=== PATIENT | male | born 1960 | race Caucasian/White ===

== ENCOUNTER 2020-05-27 09:44 | Emergency (ER) | payer BC, OTHER ==
[~2020-05-27] VITALS: Ht 177.8 cm; Wt 96.2 kg
[2020-05-27 09:55] VITALS: BP 137/103
--- NOTE | 2020-05-27 10:06 | NUR ---
AT BEDSIDE FOR EVAL
--- NOTE | 2020-05-27 10:31 | NUR ---
Patient a/ox4, breathing even and unlabored, ambulatory with steady gait. Patient discharged to home in stable condition. Written and verbal after care instructions given. Patient verbalizes understanding of instruction.
[2020-05-27] MEDS ORDERED: LORAZEPAM 1 MG TABLET ONE (17:57)
[2020-05-27] MEDS ORDERED: ATENOLOL 50 MG TABLET ONE (17:57)
== END 2020-05-27 10:43 | disposition home or self-care (01) ==
LOC: ER 09:48
DX: H92.02 Otalgia, left ear (principal); Z76.0 Encounter for issue of repeat prescription; I10 Essential (primary) hypertension

== ENCOUNTER 2020-05-27 13:45 | Emergency (ER) | payer BC, OTHER ==
[~2020-05-27] VITALS: Ht 177.8 cm; Wt 91.6 kg
--- NOTE | 2020-05-27 13:45 | NUR ---
PT [address] C/O SI "NO ACTIVE PLAN" PT IS AAOX4, NOT IN RESPIRATORY, PT IS AAOX3, V/S STABLE, KEPT RESTED AND COMFORTABLE. WILL CONTINUE TO MONITOR.
--- NOTE | 2020-05-27 13:46 | NUR ---
SITTER AT BEDSIDE FOR 1 TO 1.
--- NOTE | 2020-05-27 13:56 | NUR ---
AT BEDSIDE FOR EVAL.
--- NOTE | 2020-05-27 13:59 | NUR ---
PT WAS D/C 1 HOUR AGO/ WAS FOUND RUNNING IN THE STREET STATED HE WAS SI NO PLAN AT THIS TIME POLICE PRESENT . RESTAINSTS APPLIED TO UPPER ARMS VSSAWAITING EVALUATION BY ER PROVIDER.
--- NOTE | 2020-05-27 14:12 | NUR ---
URINE SPECIMEN COLLECTED AND SENT TO LAB.
[2020-05-27 14:48] LABS: APPEARANCE,URINE CLEAR (CLEAR); BILIRUBIN,URINE NEGATIVE (NEGATIVE); BLOOD, URINE NEGATIVE Ery/uL (NEGATIVE); COLOR,URINE YELLOW (YELLOW); KETONES,URINE NEGATIVE (NEGATIVE); LEUKOCYTE ESTERASE ,URINE NEGATIVE (NEGATIVE); NITRITE, URINE NEGATIVE (NEGATIVE); PH,URINE 5.5 (5.0-8.0); PROTEIN,URINE NEGATIVE (NEGATIVE); UGLUCOSE NEGATIVE (NEGATIVE); UROBILINOGEN,URINE 0.2 EU/dL (0.2)
[2020-05-27 15:04] LABS: BASOPHILS % (AUTO) 0.6 % (0.0-2.0); EOSINOPHILS % (AUTO) 1.9 % (0.0-6.0); HEMATOCRIT 45 % (39-51); HEMOGLOBIN 15.3 g/dL (13.5-17.5); LYMPHOCYTES # (AUTO) 1.6 /CMM (0.8-4.8); LYMPHOCYTES % (AUTO) 21.4 % (20.0-44.0); MEAN CORPUSCULAR HGB CONC 34 g/dl (31.0-36.0); MEAN CORPUSCULAR VOLUME 93 fL (80-96); MONOCYTES # (AUTO) 0.5 /CMM (0.1-1.30); MONOCYTES % (AUTO) 7.1 % (2.0-12.0); NEUTROPHILS # (AUTO) 5.3 /CMM (1.8-8.9); PLATELET COUNT (AUTO) 261 /CMM (150-450); RED BLOOD CELL COUNT(AUTO) 4.84 MIL/uL (4.5-6.0); WHITE BLOOD COUNT (AUTO) 7.6 K/uL (4.3-11.0)
[2020-05-27 15:22] LABS: CALCIUM, SERUM 8.4 mg/dL (8.5-10.1); CARBON DIOXIDE 27 mmol/L (21-32); CHLORIDE 106 mmol/L (98-107); CREATININE 1.1 mg/dL (0.6-1.3); GLUCOSE 95 mg/dL (74-106); SODIUM SERUM 141 mmol/L (136-145); UREA NITROGEN, BLOOD 23 mg/dL (7-18)
[2020-05-27 15:28] LABS: ALANINE AMINOTRANSFERASE 22 U/L (12-78); ALBUMIN 3.4 g/dL (3.4-5.0); ALKALINE PHOSPHATASE 82 U/L (46-116); ASPARTATE AMINOTRANSFERASE 15 U/L (15-37); BILIRUBIN,DIRECT 0.2 mg/dL (0.0-0.2); BILIRUBIN,TOTAL 0.5 mg/dL (0.2-1.0); TOTAL PROTEIN, SERUM 7.1 g/dL (6.4-8.2)
[2020-05-27 15:29] LABS: ALCOHOL, BLOOD 0 mg/dL (0-0); SALICYLATE 0.2 mg/dL (2.8-20.0)
--- NOTE | 2020-05-27 15:33 | NUR ---
CALLED CLINICAL SUPPORT SPECIALIST S[facility]. NO ANSWER, LEFT VOICE MAIL
[2020-05-27] MEDS ORDERED: LORAZEPAM 1 MG TABLET PO ONE (17:30)
[2020-05-27] MEDS ORDERED: ATENOLOL 50 MG TABLET PO ONE (17:30)
--- NOTE | 2020-05-27 17:35 | NUR ---
SABRINA RN AT BEDSIDE FOR PT EVAL
--- NOTE | 2020-05-27 17:54 | NUR ---
ACCEPTED BY DR. GUNDERSON AT [facility]. #FOR REPORT [phone]
--- NOTE | 2020-05-27 17:57 | NUR ---
REPORT GIVEN TO QING HARRIS.
--- NOTE | 2020-05-27 18:20 | NUR ---
[facility] ETA 190
--- NOTE | 2020-05-27 18:54 | NUR ---
REPORT GIVEN EMS FOR PT TRANSFER TO [facility].
[2020-05-27 19:01] VITALS: BP 138/91
== END 2020-05-27 19:02 ==
LOC: ER 13:46
DX: F29 Unspecified psychosis not due to a substance or known physiological condition (principal); I10 Essential (primary) hypertension
CPT/HCPCS: 36415; 80048; 80076; 80305; 80307; 80329; 81001; 84484; 85025; 99285; G0480; 81000-TC